=== PATIENT | female | born 1975 | race African-American/Black ===

== ENCOUNTER 2016-09-03 10:23 | Emergency (ER) | payer MEDICARE ==
[2016-09-03] MEDS ORDERED: CEPHALEXIN 500 MG CAPSULE PO ONE (12:09)
[2016-09-03] MEDS ORDERED: MORPHINE SULFATE 10 MG/ML INJ IM ONE (12:09)
[2016-09-03] MEDS ORDERED: ONDANSETRON 4 MG TAB.RAPDIS PO ONE (12:09)
[2016-09-03] MEDS ORDERED: LIDOCAINE 1% INJ-PF (10 MG/ML) 30 ML SDV INJ ONE (12:10)
--- NOTE | 2016-09-03 12:11 | ER Document Report ---
ED Skin Rash/Insect Bite/Abscs - General Time seen by provider: 12:00 Mode of Arrival: Ambulatory Information source: Patient TRAVEL OUTSIDE OF THE [place] IN LAST 30 DAYS: No - HPI Patient complains to provider of: Tender/swollen area Onset: Other - see HPI note Onset/Duration: Gradual Quality of pain: Pressure, Sharp, Throbbing Pain Level: 5 Skin Character: Abscess, Drainage, Swelling, Tenderness, Warm Skin Temperature: Warm - General Chief Complaint: Abscess Stated Complaint: PRIVATE AREA CONCERN Notes: Patient is a 41-year-old female presenting to the emergency department with complaints of abscess. Patient has an abscess to the left side of her pubic area. Patient states that the swelling was noticed on Wednesday 08/30. The area is very tender and painful and has begun draining. Patient states she has had these in the past and they are frequent around her menstrual cycle. Patient is allergic to penicillin and codeine. (JAMAL BAEZ) - Related Data Allergies/Adverse Reactions: codeine [Codeine] Allergy (Verified 01/04/16 12:01) Hives, SOB milk Allergy (Verified 01/04/16 12:11) Hives Penicillins Allergy (Verified 01/04/16 12:01) Hives, SOB Past Medical History - General Information source: Patient - Social History Smoking Status: Never Smoker Cigarette use (# per day): No Chew tobacco use (# tins/day): No Frequency of alcohol use: None Drug Abuse: None Family History: None GI Medical History: Reports: Hx Diverticulitis Past Surgical History: Reports: Hx Breast Surgery - mass removed, Hx Orthopedic Surgery - right & left hip. RIGHT THR, Hx Tonsillectomy - Immunizations Hx Diphtheria, Pertussis, Tetanus Vaccination: Yes Review of Systems - Review of Systems Constitutional: No symptoms reported EENT: No symptoms reported Cardiovascular: No symptoms reported Respiratory: No symptoms reported Gastrointestinal: No symptoms reported Genitourinary: No symptoms reported Female Genitourinary: No symptoms reported Musculoskeletal: No symptoms reported Skin: See HPI Hematologic/Lymphatic: No symptoms reported Neurological/Psychological: No symptoms reported -: Yes All other systems reviewed and negative Physical Exam - Vital signs Interpretation: Normal - General General appearance: Appears well, Alert In distress: Mild - HEENT Head: Normocephalic, Atraumatic Eyes: Normal Pupils: PERRL Mucous membranes: Moist - Respiratory Respiratory status: No respiratory distress Chest status: Nontender Breath sounds: Normal Chest palpation: Normal - Cardiovascular Rhythm: Regular Heart sounds: Normal auscultation Murmur: No - Abdominal Inspection: Normal Distension: No distension Bowel sounds: Normal Tenderness: Nontender Organomegaly: No organomegaly - Back Back: Normal, Nontender - Extremities General upper extremity: Normal inspection, Normal ROM, Normal strength General lower extremity: Normal inspection, Normal ROM, Normal strength - Neurological Neuro grossly intact: Yes Cognition: Normal Orientation: AAOx4 Allen Coma Scale Eye Opening: Spontaneous Allen Coma Scale Verbal: Oriented Paul Coma Scale Motor: Obeys Commands Paul Coma Scale Total: 15 Speech: Normal - Psychological Associated symptoms: Normal affect, Normal mood - Skin Skin Temperature: Warm Skin Moisture: Dry Skin irregularity: other - tender and edematous area to the left mons pubis area , area has started to drain foul-smelling pus Course - Re-evaluation Re-evalutation: 09/03/16 14:47 PROCEEDURE: There is a very large abscess starting in the left mons pubis region extending down into the labia. The skin was prepped with Shur-Clens. The area was anesthetized with 10 mL of 1% lidocaine local.(A second bottle of lidocaine and had to be pulled from the practice due to the first bottle having been placed in a cup which turned over when trying to move the primary which has wheels that do not turn very well. Also had a large amount of the cleaning solution and normal saline splash out.) A vertical incision was made starting just above the top of the labia extending into the labia. A large amount of pus came out, also what appeared to be sebaceous cyst sac remnants and other debris. The abscess cavity was irrigated with 30 mL some normal saline. Quarter-inch iodoform gauze packing was placed into the abscess cavity. (GEO GREEN) - Vital Signs Vital signs: Temp Pulse Resp BP Pulse Ox 98.3 F 90 18 151/91 H 99 09/03/16 10:56 09/03/16 10:56 09/03/16 10:56 09/03/16 10:56 09/03/16 10:56 (JAMAL BAEZ) (GEO GREEN) Discharge - Discharge Clinical Impression: Abscess of left genital labia Condition: Stable Disposition: HOME, SELF-CARE Additional Instructions: Abscess: You have an abscess (boil). This a pus-forming infection, usually due to staph. Some boils may be left to drain on their own, but most require lancing. From the time the tender lump first appears, it may be three or four days before the abscess is ready to kenny. Local heat and rest help at this stage of treatment. An antibiotic may prevent spread of the infection. Once the abscess is opened, packing may be placed into it. This is done so pus is not sealed inside by premature closure of the cavity. The packing will be removed at your follow-up visit or you may be advised to remove it yourself at home. Sometimes this packing must be replaced a few times during healing. The wound will heal with surprisingly little scar. Depending on the size and location of an abscess, healing can take one to four weeks. You may shower and wash the area around the incision site two or three times a day. Antibiotics may be prescribed, but are usually not necessary after an abscess has been drained. If you develop fever, chilling, worsening pain, or increasing swelling in the area, call the doctor or return immediately. TAKE THE MEDICATION PRESCRIBED. SOAK IN WARM WATER. REST. RETURN Sunday FOR PACKING REMOVAL AND WOUND CHECK. RETURN TO THE EMERGENCY ROOM IF ANY NEW OR WORSENING SYMPTOMS. Prescriptions: Cephalexin Monohydrate [Keflex 500 mg Capsule] 500 mg PO QID #28 capsule Oxycodone HCl/Acetaminophen [Percocet 5-325 mg Tablet] 1 - 2 tab PO ASDIR PRN # 15 tablet PRN Reason: Scribe Attestation: 09/03/16 14:28 I personally performed the services described in the documentation, reviewed and edited the documentation which was dictated to the scribe in my presence, and it accurately records my words and actions. (GEO GREEN) Scribe Documentation - Scribe Written by Franci:: Jamal Baez 08/2916 12:10 acting as scribe for :: Ayan
[2016-09-03] MEDS ORDERED: LIDOCAINE 1% INJ-PF (10 MG/ML) 30 ML SDV ONE (13:51)
[2016-09-03] MEDS ORDERED: OXYCODONE-ACETAMINOPHEN 5-325 MG TABLET PO ONE (14:25)
[2016-09-03 14:56] VITALS: BP 134/84
== END 2016-09-03 14:45 | disposition home or self-care (01) ==
LOC: ER 10:23
PROC: 0H9AXZZ Drainage of Inguinal Skin, External Approach (ICD-10-PCS; principal; 2016-09-03)
DX: N76.4 Abscess of vulva (principal); Z88.0 Allergy status to penicillin; Z88.5 Allergy status to narcotic agent; Z91.011 Allergy to milk products
CPT/HCPCS: 99283; 96374; 87070; 87205; 87075; 87077; 87186; 56405; A9270 ×3; J3490; J2270; S0119

== ENCOUNTER 2018-02-11 09:37 | Emergency (ER) | payer MEDICARE ==
[2018-02-11 09:43] VITALS: BP 144/83
--- NOTE | 2018-02-11 09:58 | ER Document Report ---
HPI - HPI Patient complains to provider of: Low back pain Onset: Other - Last week Onset/Duration: Gradual Pain Level: 4 Context: 43-year-old female developed left low back pain when she stepped out of the truck and onto the curb when she got off of work the other day. It radiated into her left buttocks. No saddle anesthesia. No fever. No IV drug use. History of a right hip replacement and she is due for a left knee replacement by Dr. Hernandez. Associated Symptoms: None Exacerbated by: Sitting, Movement Relieved by: Denies - ROS ROS below otherwise negative: Yes Systems Reviewed and Negative: Yes All other systems reviewed and negative - REPRODUCTIVE Reproductive: DENIES: : Past Medical History - General Information source: Patient - Social History Smoking Status: Never Smoker Frequency of alcohol use: None Drug Abuse: None Lives with: Spouse/Significant other Family History: None GI Medical History: Reports: Hx Diverticulitis Past Surgical History: Reports: Hx Breast Surgery - mass removed, Hx Orthopedic Surgery - right & left hip. RIGHT THR, Hx Tonsillectomy - Immunizations Hx Diphtheria, Pertussis, Tetanus Vaccination: Yes Vertical Provider Document - CONSTITUTIONAL Agree With Documented VS: Yes Exam Limitations: No Limitations - INFECTION CONTROL TRAVEL OUTSIDE OF THE [place] IN LAST 30 DAYS: No - NECK Neck: Supple - RESPIRATORY Respiratory: Breath Sounds Normal, No Respiratory Distress - CARDIOVASCULAR Cardiovascular: Regular Rate, Regular Rhythm - GI/ABDOMEN Gastrointestinal: Abdomen Soft, Abdomen Non-Tender - BACK Back: Normal Inspection Notes: Tender over the left sacroiliac joint - MUSCULOSKELETAL/EXTREMETIES Musculoskeletal/Extremeties: MAEW, Tender - See above - NEURO Level of Consciousness: Alert Deep Tendon Reflexes: 2+ - Bilateral ankle Notes: unAble to get either patellar reflexes - DERM Integumentary: No Rash Course - Vital Signs Vital signs: Temp Pulse Resp BP Pulse Ox 98.4 F 82 18 144/83 H 100 02/11/18 09:43 02/11/18 09:43 02/11/18 09:43 02/11/18 09:43 02/11/18 09:43 Discharge - Discharge Clinical Impression: Left sacral iliac pain Condition: Good Disposition: HOME, SELF-CARE Instructions: Low Back Pain ([facility]), Warm Packs ([facility]), Oral Narcotic Medication ( [facility]), Muscle Relaxers ([facility]), Ibuprofen (General) ([facility]), Chiropractor Additional Instructions: warm compress Gentle stretching exercises Follow-up with a chiropractor which may help Return to the emergency room any worsening of the symptoms Prescriptions: Hydrocodone Bit/Acetaminophen [Hydrocodon-Acetaminophen 5-325] 1 each PO Q4HP PRN #15 tablet PRN Reason: Ibuprofen [Motrin 800 mg Tablet] 800 mg PO Q8HP PRN #30 tablet PRN Reason: Cyclobenzaprine HCl [Flexeril 10 Mg Tablet] 10 mg PO TIDP PRN #20 tablet PRN Reason: Forms: Return to Work
[2018-02-11] MEDS ORDERED: HYDROCODONE/ACETAMINOPHEN 5-325 MG TABLET PO ONE (10:24)
[2018-02-11] MEDS ORDERED: ONDANSETRON 4 MG TAB.RAPDIS PO ONE (10:24)
== END 2018-02-11 10:41 | disposition home or self-care (01) ==
LOC: ER 09:37
DX: M46.1 Sacroiliitis, not elsewhere classified (principal); M54.5 Low back pain; Z96.641 Presence of right artificial hip joint
CPT/HCPCS: 99283; A9270 ×2; S0119

== ENCOUNTER 2020-07-20 10:00 | Outpatient (CLI) | payer MEDICARE ==
[~2020-07-20 10:00] MED LIST: FERUMOXYTOL (NON-ESRD) 510 MG/NS 100 ML IV PRN; NORMAL SALINE 250 ML IV PRN
[2020-07-20 10:23] VITALS: BP 143/77
== END 2020-07-20 11:24 | disposition home or self-care (01) ==
LOC: II 10:00 → 5TH 10:03 → II 11:24
PROVIDERS: ATTEND Internal Medicine
DX: K90.9 Intestinal malabsorption, unspecified (principal)
CPT/HCPCS: 96365; Q0138; J7050

== ENCOUNTER 2020-07-27 10:02 | Outpatient (CLI) | payer MEDICARE ==
[2020-07-27 10:12] VITALS: BP 130/84
== END 2020-07-27 11:00 | disposition home or self-care (01) ==
LOC: II 10:02 → 5TH 10:03 → II 11:00
PROVIDERS: ATTEND Internal Medicine
DX: D50.8 Other iron deficiency anemias (principal); K90.9 Intestinal malabsorption, unspecified
CPT/HCPCS: 96365; Q0138; J7050

== ENCOUNTER → 2020-08-30 | Outpatient (CLI) | payer MEDICARE ==
[2020-08-30 11:54] LABS: ABSOLUTE BASOPHILS # (AUTO) 0.1 10^3/uL (0.0-0.2); ABSOLUTE EOSINOPHILS # (AUTO) 0.2 10^3/uL (0.0-0.6); ABSOLUTE LYMPHOCYTES (AUTO) 1.5 10^3/uL (0.5-4.7); ABSOLUTE MONOCYTES (AUTO) 0.6 10^3/uL (0.1-1.4); ABSOLUTE NEUT (AUTO) 3.1 10^3/uL (1.7-8.2); BASOPHILS % (AUTO) 0.9 % (0-2); EOSINOPHILS % (AUTO) 2.9 % (0-6); HEMATOCRIT 39.4 % (36.0-47.0); HEMOGLOBIN 12.5 g/dL (12.0-15.5); MEAN CORPUSCULAR HEMOGLOBIN 28.2 pg (27.0-33.4); MEAN CORPUSCULAR HGB CONC 31.9 g/dL (32.0-36.0); MEAN CORPUSCULAR VOLUME 88 fl (80-97); MONOCYTES % (AUTO) 11.1 % (3-13); PLATELET COUNT 222 10^3/uL (150-450); RED BLOOD COUNT 4.45 10^6/uL (3.72-5.28); RED CELL DISTRIBUTION WIDTH 21.2 % (11.5-14.0); SEGMENTED NEUTROPHILS % (AUTO) 57.1 % (42-78); TOTAL CELLS COUNTED % (AUTO) 100 %; WHITE BLOOD COUNT 5.4 10^3/uL (4.0-10.5)
[2020-08-30 12:07] LABS: IRON(TIBC) 76.1 ug/dL (37-170)
== END ==
LOC: OD 10:47
PROVIDERS: ATTEND Physician Assistant
DX: D50.9 Iron deficiency anemia, unspecified (principal)
CPT/HCPCS: 36415; 82728; 83540; 83550; 85025